=== PATIENT | male | born 1995 | race Caucasian/White ===

== ENCOUNTER 2020-11-08 00:32 | Emergency (ER) | payer BC ==
[~2020-11-08 00:32] MED LIST: CETIRIZINE HCL5 MG PO; NORCO 7.5-3251 EACH PO
[2020-11-08 02:02] LABS: HEMOGLOBIN 14.4 gm/dl (14.0-17.5); RED BLOOD COUNT 4.71 M/UL (4.20-5.50)
[2020-11-08 02:14] LABS: BUN/CREATININE RATIO 17 (0-10)
[2020-11-08] MEDS ORDERED: HYDROCODON-ACE1 EAC4 PO (04:58)
[2020-11-08] MEDS ORDERED: FLOMAX 0.4 MG0.4 MG PO (04:58)
[2020-11-08] MEDS ORDERED: ZOFRAN ODT 4 MG4 MG SL (04:58)
== END 2020-11-08 05:20 | disposition home or self-care (01) ==
LOC: ER1 00:32
PROVIDERS: Physician Assistant Medical
DX: N20.1 Calculus of ureter (principal)
CPT/HCPCS: 80053; 81001; 85025; 87086; 96374; 99284; J1885; J2405